=== PATIENT | male | born 1945 | race Caucasian/White ===

== ENCOUNTER 2024-02-28 12:48 | Outpatient (RCR) | payer MEDICARE, SELFPAY | END 2024-08-26 23:59 | disposition home or self-care (01) | LOC: CCIC 12:48 | PROVIDERS: Visit Provider Clinical Nurse Specialist | DX: C44.02 Squamous cell carcinoma of skin of lip (principal) | CPT/HCPCS: 99211 ==

== ENCOUNTER 2024-08-22 08:43 | Outpatient (CLI) | payer MEDICARE, SELFPAY ==
--- NOTE | 2024-08-22 09:00 | CRLHL7_ITS ---
For Patients: As a result of the Century Cures Act, medical imaging exams and procedure reports are released immediately into your electronic medical record. You may view this report before your referring provider. If you have questions, please contact your health care provider. INDICATION: Squamous cell carcinoma of the lip. TECHNIQUE: CT of the neck with 91 cc Isovue 370 iodinated contrast agent. COMPARISON: Neck CT from 02/17/2024. FINDINGS: Nasopharynx: Within normal limits. Oropharynx: Within normal limits. Oral cavity: Within normal limits. Supraglottic, glottic and infraglottic larynx: Within normal limits. Hypopharynx: Within normal limits. Airway including the trachea: Within normal limits. Salivary glands and thyroid gland: Left-sided submandibular gland is surgically absent. Right-sided submandibular gland and parotid glands are normal in appearance. Lymph nodes and other cervical soft tissues: Postop changes of left-sided radical neck dissection. Multiple surgical clips are present within the left-sided neck. Vascular Structures: Within normal limits. Osseous structures: No acute fractures or other acute osseous abnormalities. Degenerative cervical kyphosis. Trace anterolisthesis C3-4 and C4-5. Advanced disc degeneration C5-6 and C6-7. 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 Paranasal sinuses and mastoid air cells: Within normal limits. Teeth: Within normal limits. 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 Imaged chest wall, mediastinum and upper lungs: Peripheral reticular opacities within both lungs, possibly reflecting scarring/fibrosis. Coronary artery calcifications. IMPRESSION: 1. Postop changes of left-sided radical neck dissection. No pathologic lymphadenopathy within the neck. Please note that all CT scans at this facility use dose modulation, iterative reconstruction, and/or weight-based dosing when appropriate to reduce radiation dose to as low as reasonably achievable. Dictated by Gerard Fay MD @ 08/24/2024 11:31:22 AM (Electronically Signed)
[2024-08-22 09:19] LABS: Creatinine* 0.8 mg/dL (0.5-1.5); Estimated Glomerular Filt Rate 90 ml/min
== END 2024-08-22 08:44 | disposition home or self-care (01) ==
PROVIDERS: Visit Provider Nurse Practitioner
DX: C44.02 Squamous cell carcinoma of skin of lip (principal); C77.9 Secondary and unspecified malignant neoplasm of lymph node, unspecified
CPT/HCPCS: 36415; 70491; 82565; Q9967